=== PATIENT | female | born 1970 | race Caucasian/White ===

== ENCOUNTER 2018-04-23 20:56 | Outpatient (CLI) | payer BC, OTHER ==
[~2018-04-23 20:56] MED LIST: CYAN100021 PO; LVT.1T PO; PNT40TEC PO; VIT1TABL57; VIT1TABL93 PO; VITIMIN D
== END 2018-04-24 06:40 | disposition home or self-care (01) ==
LOC: SLEEP 20:56
PROVIDERS: ATTEND Internal Medicine Cardiovascular Disease
DX: G47.33 Obstructive sleep apnea (adult) (pediatric) (principal)
CPT/HCPCS: 95810

== ENCOUNTER 2018-06-03 21:03 | Outpatient (CLI) | payer BC | END 2018-06-04 06:57 | disposition home or self-care (01) | LOC: SLEEP 21:03 | PROVIDERS: ATTEND Nurse Practitioner Family | DX: G47.33 Obstructive sleep apnea (adult) (pediatric) (principal); R06.83 Snoring; I10 Essential (primary) hypertension | CPT/HCPCS: 95811 ==

== ENCOUNTER 2020-11-13 05:31 | Outpatient (CLI) | payer BC ==
[~2020-11-13] VITALS: Ht 167.7 cm; Wt 140.9 kg
[2020-11-13] MEDS ORDERED: CELE50CA PO (16:15)
[2020-11-13] MEDS ORDERED: PANT40TA2 PO (16:15)
[2020-11-13] MEDS ORDERED: LEVO150C4 PO (16:15)
[2020-11-13] MEDS ORDERED: DIPH25CA79 PO (16:15)
[2020-11-13] MEDS ORDERED: FERR-84 PO (16:15)
[2020-11-13] MEDS ORDERED: LORA10TA76 PO (16:15)
[2020-11-13] MEDS ORDERED: ROSU5TAB PO (16:15)
[2020-11-13] MEDS ORDERED: CHOL20003 PO (16:15)
[2020-11-13] MEDS ORDERED: METO-351 PO (16:15)
== END 2020-11-13 16:54 | disposition home or self-care (01) ==
LOC: PREOP 05:31
PROVIDERS: ATTEND Orthopaedic Surgery
DX: Z01.818 Encounter for other preprocedural examination (principal)

== ENCOUNTER 2020-11-20 09:00 | Day surgery (SDC) | payer BC ==
--- NOTE | 2020-11-14 07:39 | HISTORY AND PHYSICAL ---
DATE OF SERVICE: ADMISSION HISTORY AND PHYSICAL DATE OF ADMISSION: 11/20/2020. This will be for outpatient surgery on 11/20/2020 for right knee arthroscopy. HISTORY OF PRESENT ILLNESS: The patient is a 50-year-old female with right knee pain, catching, locking and swelling. She underwent an MRI, which revealed evidence of medial and lateral meniscus tears. Due to functional impairment and failure to improve with conservative measures, the patient elected to proceed with surgical intervention. REVIEW OF SYSTEMS: No chest pain, no shortness of breath, and no dysuria. PAST MEDICAL HISTORY: Hypothyroidism, colon polyps, obesity, polycystic ovarian syndrome, iron deficiency anemia, hernia and PVCs. PAST SURGICAL HISTORY: , cholecystectomy, herniorrhaphy, and bilateral carpal tunnel. FAMILY HISTORY: Significant for cardiovascular disease and diabetes. PRIMARY CARE PROVIDER: Dr. Rodríguez. MEDICATIONS: 1. Levothyroxine. 2. Iron. 3. Protonix. 4. Claritin. 5. Toprol. ALLERGIES: LEVAQUIN and SULFA. SOCIAL HISTORY: The patient drinks alcohol occasionally. Denies tobacco use. PHYSICAL EXAMINATION: GENERAL: The patient is well-developed, well-nourished, in no acute distress. HEENT: Normocephalic and atraumatic. Pupils are equal, round and reactive to light. Oropharynx is clear. NECK: Supple, with no lymphadenopathy. LUNGS: Clear to auscultation bilaterally. HEART: Regular rate and rhythm. ABDOMEN: Soft, nontender, and nondistended. EXTREMITIES: The right knee demonstrates a mild effusion. There is no erythema or warmth. Range of motion is 0/0/130. She is tender along the medial and lateral joint lines and has pain medially and laterally with Juancarlos's. 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 PLAN: Right knee arthroscopy, partial medial and lateral meniscectomies and chondroplasty. The risks, benefits, options, ramifications and recovery were discussed at length with the patient. She understands and wishes to proceed. Job ID: [id number] DocumentID: [id number] Dictated Date: 11/07/2020 11:09:30 Director Of Real Estate Date: 11/07/2020 11:37:40 Dictated By: LUKAS DICKENS MD
[~2020-11-20] VITALS: Ht 167.7 cm; Wt 140.9 kg
[2020-11-20] VITALS (10 sets, daily range): BP systolic 105–131; BP diastolic 53–83
[~2020-11-20 09:00] MED LIST changes: +CELE50CA PO; +CHOL20003 PO; +DIPH25CA79 PO; +FERR-84 PO; +LEVO150C4 PO; +LORA10TA76 PO; +METO-351 PO; +PANT40TA2 PO; +ROSU5TAB PO
--- NOTE | 2020-11-20 09:03 | Progress Note-Pre Operative ---
Pre-Operative Progress Note H&P Reviewed The H&P was reviewed, patient examined and no changes noted. Date Seen by Provider: Nov 20, 2020 Time Seen by Provider: 09:03 Date H&P Reviewed: Nov 20, 2020 Time H&P Reviewed: 07:11 Pre-Operative Diagnosis: right lateral meniscus tear and chondromalacia LUKAS DICKENS MD Nov 20, 2020 09:03
--- NOTE | 2020-11-20 09:04 | Progress Note-Post Operative ---
Post-Operative Progess Note Surgeon (s)/Lan Support Specialist (s) Surgeon LUKAS DICKENS MD Lan Support Specialist: Kenrick Head Pre-Operative Diagnosis right lateral meniscus tear and chondromalacia Post-Operative Diagnosis right lateral meniscus tear and chondromalacia of medial and lateral femoral condyles, patella and trochlea Procedure & Operative Findings Date of Procedure 11/20/20 Procedure Performed/Findings right knee arthroscopic partial lateral meniscectomy and chondroplasty of the medial and lateral femoral condyles, patella and trochlea Anesthesia Type GETA Estimated Blood Loss Estimated blood loss (mL): minimal Specimens/Packing Specimens Removed none Packing: none LUKAS DICKENS MD Nov 20, 2020 09:04
[2020-11-20] MEDS ORDERED: HYDROcodone/APAP 7.5 MG/325 MG (LORTAB, LORCET PLUS) TABLET PO PRN (09:15)
[2020-11-20] MEDS ORDERED: ceFAZolin INJECTION 1,000 MG in WATER (STERILE) FOR INJECTION 10 ML IV ONE (09:15)
[2020-11-20] MEDS ORDERED: LIDOCAINE PF 2% 5 ML (XYLOCAINE) VIAL ONE (09:28)
[2020-11-20] MEDS ORDERED: proPOfol 200 MG/20 ML (DIPRIVAN) VIAL IV ONE (09:28)
[2020-11-20] MEDS ORDERED: fentaNYL INJ 100 MCG/2 ML AMP ONE (09:28)
[2020-11-20] MEDS ORDERED: ONDANSETRON 4 MG/2 ML (SDV) Z0FRAN ONE (09:28)
[2020-11-20] MEDS ORDERED: PROPOFOL INJECTION 50 ML IV ONE ×2 (09:28→10:13)
[2020-11-20] MEDS ORDERED: MIDAZOLAM 2 MG/2 ML (VERSED) VIAL ONE (09:28)
[2020-11-20] MEDS ORDERED: FAMOTIDINE 20MG/2ML IV (PEPCID) IV ONE (09:30)
[2020-11-20] MEDS ORDERED: ONDANSETRON 4 MG/2 ML (SDV) Z0FRAN IV ONE (09:30)
[2020-11-20] MEDS ORDERED: morphine PF (DURAMORPH) 10 MG/10 ML AMP ONE (09:40)
[2020-11-20] MEDS ORDERED: BUPIVACAINE 0.25% 30 ML (SENSORCAINE) VIAL ONE (09:40)
[2020-11-20] MEDS ORDERED: ceFAZolin INJECTION 1,000 MG ONE (09:48)
[2020-11-20] MEDS: LACTATED RINGERS 1,000 ML IV PRN ×2 (09:49→10:52)
[2020-11-20] MEDS ORDERED: WATER (STERILE) FOR INJECTION 10 ML ONE (09:49)
[2020-11-20] MEDS ORDERED: morphine INJ 10 MG/ML 1ML (SYR OR VIAL) IVP ONE (11:00)
[2020-11-20] MEDS ORDERED: HYDROmorphone 2 MG/ML VIAL (DILAUDID) IV ONE (11:00)
[2020-11-20] MEDS ORDERED: morphine INJ 10 MG/ML 1ML (SYR OR VIAL) ONE (11:01)
[2020-11-20] MEDS: ONDANSETRON 4 MG/2 ML (SDV) Z0FRAN IVP PRN ×3 (11:03→11:58)
[2020-11-20] MEDS ORDERED: HYDROcodone/APAP 7.5 MG/325 MG (LORTAB, LORCET PLUS) TABLET PO ONE (12:15)
[2020-11-20] MEDS ORDERED: HYDR-34 PO (12:47)
[2020-11-20] MEDS ORDERED: CYCL5TAB PO (12:47)
--- NOTE | 2020-11-20 13:01 | Physical Therapy Ortho Eval ---
PT Orthopedic Evaluation Type of Surgery Knee Scope right side Prior Level of Function Current Living Status: Spouse Locomotion (Upon Admit): Independent Subjective Subjective Patient in bed pre tx, agrees to PT, has 5/10 pain, still drowsy. Patient has a split level home and any way she goes in she has about 12-15 steps to go up or down. Those steps do have handrails. Patient wants to use crutches but a rolling walker will be safer at this time, she will be educated on how to use crutches and how to use them on her stairs at the appropriate time (verbal directions, with demonstration). Motor Control Motor Control: Motor Control WNL Transfer SCALE: Activities may be completed with or without assistive devices. 0-Ikvltuufar-qekbyer completes the activity by him/herself with no assistance from a helper. 5-Set-up or Clean-up Assistance-helper sets up or cleans up; patient completes activity. [place] assists only prior to or following the activity. 4-Supervision or Touching Assistance-helper provides verbal cues and/or touching/steadying and/or contact guard assistance as patient completes activity. Assistance may be provided throughout the activity or intermittently. 3-Partial/Moderate Assistance-helper does LESS THAN HALF the effort. [place] lifts, holds or supports trunk or limbs, but provides less than half the effort. 2-Substantial/Maximal Assistance-helper does MORE THAN HALF the effort. [place] lifts or holds trunk or limbs and provides more than half the effort. 8-Zbwzsytvr-jntatr does ALL the effort. Patient does none of the effort to complete the activity. Or, the assistance of 2 or more helpers is required for the patient to complete the activity. If activity was not attempted, code reason: 7-Patient Refused. 9-Not Applicable-not attempted and the patient did not perform the activity before the current illness, exacerbation or injury. 10-Not Attempted due to Environmental Limitations-(lack of equipment, weather restraints, etc.). 88-Not Attempted due to Medical Conditions or Safety Concerns. Transfers (B, C, W/C) (QC): 4 Gait Summary/Comments Patient ambulated 60' with a rolling walker with CGA and went up and down 1 step using a rolling walker with CGA and cues for steps and positioning. Patient had some difficulty going up and down the step but didn't need any actual assist from therapist. Treatment Rendered Treatment: Therapeutic Exercises, Gait Train, Step Train Exercise Instruction: Quad Sets, Heel Slides, Ankle Pumps Assessment/Goals Goal Time Frame: 1 Visit Understands HEP: Yes Safe Ambulation: Yes Plan Treatment Plan: Discharge PT/Family Agrees to Plan: Yes Time Time In: 1228 Time Out: 1247 Total Billed Treatment Time: 19 Billed Treatment Time 1 visit EVL 19' MARVIN MACE PT Nov 20, 2020 13:00
--- NOTE | 2020-11-20 17:13 | OPERATIVE REPORT ---
DATE OF SERVICE: 11/20/2020 PREOPERATIVE DIAGNOSES: 1. Right knee lateral meniscus tear. 2. Right knee chondromalacia of the medial femoral condyle. 3. Right knee chondromalacia of the patella. POSTOPERATIVE DIAGNOSES: 1. Right knee lateral meniscus tear. 2. Right knee chondromalacia of the medial femoral condyle. 3. Right knee chondromalacia of the patella. 4. Right knee chondromalacia of the lateral femoral condyle. 4. Right knee chondromalacia of the trochlea. PROCEDURES PERFORMED: 1. Right knee arthroscopic partial lateral meniscectomy. 2. Right knee arthroscopic chondroplasty of the medial femoral condyle. 3. Right knee arthroscopic chondroplasty of the patella. 4. Right knee arthroscopic chondroplasty of the lateral femoral condyle. 5. Right knee arthroscopic chondroplasty of the trochlea. SURGEON: Sp Potter MD CREDIT OR LOANS OFFICER: Kenrick Head, who assisted throughout the procedure and closed the incisions. ANESTHESIA: General endotracheal by Ander Valdez CRNA. TOURNIQUET TIME: Not applicable. ESTIMATED BLOOD LOSS: Minimal. DRAINS: None. COMPLICATIONS: None. POSTOPERATIVE PLAN: Routine arthroscopy protocol. The patient was transferred to the recovery room awake and in stable condition. STATEMENT OF MEDICAL NECESSITY: The patient is a 50-year-old female with complaints of right knee pain, catching, locking and swelling. She was tender along the lateral joint line. She has pain laterally with Juancarlos's. In addition, she underwent an MRI that showed a lateral meniscus tear as well as chondral changes throughout her medial and patellofemoral compartments. Due to functional impairment and failure to improve with conservative measures, the patient elected to proceed with surgical intervention. Examination under anesthesia revealed range of motion of 0/0/125 with negative Jessica, negative anterior and posterior drawer. No varus or valgus laxity and a negative pivot shift. ARTHROSCOPIC FINDINGS: The patella demonstrated grade II chondral flaps inferiorly in a 10 x 10 area. Trochlea demonstrated grade III to IV chondral loss centrally in a 10 x 10 area. The medial and lateral gutters were clear. The ACL and PCL were intact. The lateral compartment demonstrated a tear of the posterior horn of the lateral meniscus involving approximately 80% of the posterior horn and body. In addition, there were grade III chondral flaps of the central portion of the femoral condyle in a 10 x 10 area. The medial compartment demonstrated grade III chondral flaps of the central portion of the femoral condyle in an 8 x 8 area. PROCEDURE IN DETAIL: After risks and benefits of the procedure were discussed and questions were answered, an informed consent was signed and placed on chart, the operative sites were confirmed in the preoperative holding area initialed by the surgeon. The patient was transferred to the operating room. After adequate levels of general endotracheal anesthetic were obtained, a timeout was called, confirming the operative site. Examination under anesthesia was performed with the above findings noted. The right lower extremity was prepped and draped in the usual sterile fashion. Knee joint was injected with 60 mL of fluid and standard inferolateral portal was placed with arthroscope. Under direct visualization, inferior medial portal was created. Diagnostic arthroscopy was performed with the above findings noted. The unstable chondral flaps on the patella and trochlea were debrided with a shaver back to a stable edge. Scope was then redirected into the medial compartment and the unstable chondral flaps of the medial femoral condyle were debrided with shaver back to a stable edge. Scope was redirected into the lateral compartment and unstable chondral flaps in lateral femoral condyle were debrided with a shaver back to a stable edge and the lateral meniscus tear was debrided with a biter and a shaver removing approximately 80% of the posterior horn and body. This was carefully probed with no further tearing or instability noted. The knee was copiously irrigated. The portal sites were closed with 4-0 nylon in a simple interrupted fashion. The knee was injected with Duramorph. The portal sites were infiltrated with plain Marcaine. A soft dressing was applied and the patient was transferred to the recovery room awake and in stable condition. Job ID: [id number] DocumentID: [id number] Dictated Date: 11/20/2020 10:51:40 Belting Inspector Date: 11/20/2020 17:12:46 Dictated By: SP POTTER MD
--- NOTE | 2020-11-21 07:56 | Anesthesia-General Post-Op ---
General Patient Condition Mental Status/LOC: Same as Preop Cardiovascular: Satisfactory Nausea/Vomiting: Absent Respiratory: Satisfactory Pain: Controlled Complications: Absent Post Op Complications Complications None Follow Up Care/Instructions Patient Instructions None needed. Anesthesia/Patient Condition Patient Condition Patient was seen after the procedure and she was doing well, no complaints, stable vital signs, no apparent adverse anesthesia problems. CHIQUI GARCIA 10, 2021 07:56
== END 2020-11-20 13:25 | disposition home or self-care (01) ==
LOC: SDC 09:00
PROVIDERS: ATTEND Orthopaedic Surgery
DX: S83.281A Other tear of lateral meniscus, current injury, right knee, initial encounter (principal); M94.261 Chondromalacia, right knee; I10 Essential (primary) hypertension; G47.33 Obstructive sleep apnea (adult) (pediatric); E03.9 Hypothyroidism, unspecified; E66.01 Morbid (severe) obesity due to excess calories; E78.5 Hyperlipidemia, unspecified; R07.9 Chest pain, unspecified; K21.9 Gastro-esophageal reflux disease without esophagitis; F41.9 Anxiety disorder, unspecified; Z86.16 Personal history of COVID-19; Z68.43 Body mass index [BMI] 50.0-59.9, adult; Z99.89 Dependence on other enabling machines and devices; Z79.899 Other long term (current) drug therapy; Z79.890 Hormone replacement therapy; Z83.3 Family history of diabetes mellitus
CPT/HCPCS: 87081

== ENCOUNTER → 2021-05-07 | Outpatient (CLI) | payer BC ==
[~2021-05-07] MED LIST changes: +CATHETER FLUSH 10 ML SYR IV PRN; +CYCL5TAB PO; +HYDR-34 PO; +REGADENOSON 0.4 MG/5 ML SYR (LEXISCAN) IV ONE
[2021-05-07 09:43] VITALS: BP 129/92
--- NOTE | 2021-05-07 11:56 | Cardiology Stress Test Report ---
Stress Test Report Date of Procedure/Referring: Date of Procedure: May 07, 2021 PCP Deborah Souza MD Admitting Physician Emerita Rodríguez MD Indications: Palpitation Baseline Heart Rate: 83 Baseline Blood Pressure: Blood Pressure Systolic: 129 Blood Pressure Diastolic: 92 Baseline Vitals Vital Signs Date Time Temp Pulse Resp B/P (MAP) Pulse Ox O2 Delivery O2 Flow Rate FiO2 05/07/21 09:43 86 129/92 (104) Baseline EKG: Baseline EKG: NSR Summary After explaining the procedure to the patient, she signed a consent and then brought to the stress nuclear laboratory. Patient received 0.4 mg Lexiscan for stress test, ECG, heart rate and blood pressure were monitored continuously. Resting and stress dose of radio tracer were injected, imaging was acquired and reviewed in short axis, horizontal long axis and vertical long axis views. TID: 1.03 SSS: 18 SDS: 4 EF: 61 1. Patient tolerated Lexiscan well 2. Breast attenuation with reversible ischemia involving the whole anterior wall and anterolateral wall 3. Normal left ventricular size, EF 61% DEBORAH SOUZA MD May 07, 2021 11:56
== END ==
LOC: CARD 08:15
PROVIDERS: ATTEND Internal Medicine Cardiovascular Disease
DX: R00.2 Palpitations (principal)
CPT/HCPCS: 78452; 93017; A9502

== ENCOUNTER 2021-05-23 10:00 | Day surgery (SDC) | payer BC ==
[2021-05-23] VITALS (9 sets, daily range): BP systolic 99–153; BP diastolic 65–98
[~2021-05-23] VITALS: Ht 167 cm; Wt 141.0 kg
[2021-05-23 08:27] LABS: HEMATOCRIT 44 % (35-52); HEMOGLOBIN 14.7 g/dL (11.5-16.0); MEAN CORPUSCULAR HEMOGLOBIN 29 pg (25-34); MEAN CORPUSCULAR HGB CONC 33 g/dL (32-36); MEAN CORPUSCULAR VOLUME 85 fL (80-99); MEAN PLATELET VOLUME 11.9 fL (9.0-12.2); PLATELET COUNT 244 10^3/uL (130-400); WHITE BLOOD COUNT 9.5 10^3/uL (4.3-11.0)
[2021-05-23 08:39] LABS: INR 0.9 (0.8-1.4); PROTHROMBIN TIME PATIENT 12.4 SEC (12.2-14.7)
--- NOTE | 2021-05-23 08:40 | Diagnostic Imaging Report ---
EXAM: CHEST 1 VIEW, AP/PA ONLY INDICATION: Chest pain. Hypertension. Palpitations. COMPARISON: None FINDINGS: Normal heart size and central pulmonary vascularity. No focal pulmonary opacity. No pleural effusion or pneumothorax. No acute osseous findings. IMPRESSION: No acute cardiopulmonary findings. Dictated by: Dictated on workstation # [id number]
[2021-05-23 08:47] LABS: ALBUMIN 3.8 GM/DL (3.2-4.5); BILIRUBIN,TOTAL 0.4 MG/DL (0.1-1.0); CALCIUM 9.4 MG/DL (8.5-10.1); CREATININE SERUM 0.76 MG/DL (0.60-1.30); POTASSIUM 4.2 MMOL/L (3.6-5.0); TOTAL PROTEIN 7.4 GM/DL (6.4-8.2)
--- NOTE | 2021-05-23 09:43 | Conscious Sedation/ASA ---
Conscious Sedation Pre-Proced Time 09:43 ASA Score 3 For ASA 3 and 4: Consider anesthesia and medical clearance. Also, for patients with a history of failed moderate sedation consider anesthesia. Airway Lungs Heart ASA score ASA 1: a normal healthy patient ASA 2: a patient with a mild systemic disease (mid diabetes, controlled hypertension, obesity x ASA 3: a patient with a severe systemic disease that limits activity (angina, COPD, prior Myocardial infarction) ASA 4: a patient with an incapacitating disease that is a constant threat to life (CHF, renal failure) ASA 5: a moribund patient not expected to survive 24 hrs. (ruptured aneurysm) ASA 6: a declared brain- patient whose organs are being harvested. For emergent operations, add the letter E after the classification Mallampati Classification Grade 3 Sedation Plan Analgesia, Amnesia, Plan communicated to team members, Discussed options with patient/fam, Discussed risks with patient/fam The patient is an appropriate candidate to undergo the planned procedure, sedation, and anesthesia. The patient immediately re-assessed prior to indication. DEBORAH HURTADO MD May 23, 2021 09:43
[~2021-05-23 10:00] MED LIST changes: -CATHETER FLUSH 10 ML SYR IV PRN; +HEParin (CATH LAB) 2,000 ML IV ONE; +LIDOCAINE 1% INJ 20 ML 20 ML VIAL ONE; +NS IV 1000 ML 1,000 ML IV SCH; +NS IV 1000 ML 1,000 ML ONE; -REGADENOSON 0.4 MG/5 ML SYR (LEXISCAN) IV ONE; +TRAM50TA3 PO
[2021-05-23] MEDS ORDERED: fentaNYL INJ 100 MCG/2 ML AMP ONE (10:22)
[2021-05-23] MEDS ORDERED: HEParin 1000 UNIT/ML (10ML VIAL) FOR BOLUS ONE (10:22)
[2021-05-23] MEDS ORDERED: VERAPAMIL 5 MG/2 ML (CALAN) VIAL IV ONE (10:22)
[2021-05-23] MEDS ORDERED: MIDAZOLAM 5 MG/5 ML (VERSED) VIAL ONE (10:22)
[2021-05-23] MEDS ORDERED: NITRO DRIP 25000 MCG/D5W 250 ML IV ONE (10:23)
--- NOTE | 2021-05-23 11:10 | Discharge Inst-Post CATH ---
Discharge Inst-CATH/EP Problems Reviewed?: Yes Post Cardiac Cath/EP D/C Inst Follow Up/Plan Appointment with Dr. Souza's office in 4 weeks <b>CARDIAC CATH/EP PROCEDURE DISCHARGE INSTRUCTIONS</b> ACTIVITY * Go Home directly and rest. * Limit activity of the leg (or wrist if it was used) for 7 days including aerobics, swimming, jogging, bicycling, etc. * Restrict stair-climbing for 7 days if possible, if not, climb up with your non-cath leg, then bring together on the same step. * Avoid lifting, pushing, pulling or excessive movement of the affected extremity for 7 days. * Customary sexual activity may be resumed after 2 days-use caution not to use a position that strains or causes pain to the affected extremity. * No driving for 24 hours. * NO SMOKING. * Avoid straining for bowel movements for 7 days. * Gentle walking on level ground is allowed. * Returning to work will depend on the type of procedure and the results. Your doctor will discuss this with you. CALL YOUR DOCTOR FOR ANY OF THE FOLLOWING: *If bleeding from the puncture site occurs- Apply gentle pressure to site with clean cloth and call your doctor or EMS. * If a knot or lump forms under the skin, increases in size, or causes pain. * If bruising appears to be worsening or moving further down your leg instead of disappearing. * Temperature above 101 F. CARE OF YOUR GROIN INCISION; * Bruising or purple discoloration of the skin near the puncture site is common. * You may shower only, no bathtub bathing for 5 days. Be careful to avoid slipping as your leg may feel stiff. * If a closure device was used on your femoral artery, please see the attached guide regarding care of the device and your leg. * Leave dressing on FOR 24 hours. CARE OF YOUR WRIST INCISION; * Bruising or purple discoloration of the skin near the puncture site is common. * You may shower. * DO NOT submerge wrist. * Leave dressing on FOR 24 hours. DEBORAH SOUZA MD May 23, 2021 11:10
--- NOTE | 2021-05-23 11:13 | Cardiac Cath Report ---
Cardiac Cath Report Physician (s)/Monogram And Letter Paster (s) Physician DEBORAH HURTADO MD Pre-Procedure Diagnosis Pre-Procedure Diagnosis: Coronary artery disease Post-Procedure Note Procedure Start Date: May 23, 2021 Name of Procedure: Left heart catheterization Findings/Procedure Note PROCEDURE NOTE: 51-year-old lady with history of hypertension, hyperlipidemia, has been having chest pain, had an abnormal stress test, scheduled for cardiac catheterization possible PTCA. After explaining the procedure to the patient, all pros and cons were explained, all questions were answered. The patient signed the consent and then she was placed on the cardiac catheterization laboratory. Groin was prepped SL fashion local anesthesia was used. Sheath placed in the right radial artery, Parish catheter was advanced to the left ventricular cavity, pressure was measured, pullback LV to aorta was done, engaged the right and left coronary system, angiogram was done. At the end of the procedure the sheath was removed. Vascular band deployed FINDINGS: Hemodynamics LV 113/12, end-diastolic pressure of 12 Aorta 112/80 mean of 91 ANATOMY: Left Main is free of obstructive disease Left Anterior Descending is tortuous artery with mild disease nonobstructive disease Left Circumflex has mild disease nonobstructive disease Right Coronary Artery has mild disease nonobstructive disease LV Gram was not done, pressure was measured CONCLUSION: 1. Slightly tortuous LAD system with mild coronary artery disease nonobstructive disease 2. Normal left ventricular end-diastolic pressure DISCUSSION AND RECOMMENDATION: Medical therapy is recommended no intervention is warranted Anesthesia Type: Conscious Sedation Estimated blood loss (mL): 10 ml Contrast Amount: 44 ml Total Radiation Dose: 542 mGy Post-Procedure Diagnosis Post-operative diagnosis: Chest pain Coronary artery disease Hypertension Hyperlipidemia DEBORAH HURTADO MD May 23, 2021 11:13
[2021-05-23] MEDS ORDERED: NS IV 1000 ML 1,000 ML IV SCH (11:15)
== END 2021-05-23 13:45 | disposition home or self-care (01) ==
LOC: CATH 10:00 → SDC 11:16 → CATH 13:45
PROVIDERS: ATTEND Internal Medicine Cardiovascular Disease
DX: I25.10 Atherosclerotic heart disease of native coronary artery without angina pectoris (principal); I10 Essential (primary) hypertension; E78.5 Hyperlipidemia, unspecified; E03.9 Hypothyroidism, unspecified; E78.2 Mixed hyperlipidemia; G47.33 Obstructive sleep apnea (adult) (pediatric); R00.2 Palpitations; E66.9 Obesity, unspecified; F41.9 Anxiety disorder, unspecified; K21.9 Gastro-esophageal reflux disease without esophagitis; Z79.899 Other long term (current) drug therapy; Z68.43 Body mass index [BMI] 50.0-59.9, adult; Z99.89 Dependence on other enabling machines and devices; Z79.890 Hormone replacement therapy; Z82.49 Family history of ischemic heart disease and other diseases of the circulatory system; Z11.2 Encounter for screening for other bacterial diseases; Z88.1 Allergy status to other antibiotic agents; Z88.2 Allergy status to sulfonamides
CPT/HCPCS: 36430; 71045; 80053; 80061; 84703; 85027; 85610; 85730; 87081; 93458; C1894; 36415

== ENCOUNTER → 2022-03-31 | Outpatient (CLI) | payer BC ==
[~2022-03-31] MED LIST changes: -HEParin (CATH LAB) 2,000 ML IV ONE; -LIDOCAINE 1% INJ 20 ML 20 ML VIAL ONE; -NS IV 1000 ML 1,000 ML IV SCH; -NS IV 1000 ML 1,000 ML ONE
[2022-03-31 10:54] LABS: BASOPHILS % (AUTO) 1 % (0-10); EOSINOPHILS # (AUTO) 0.3 10^3/uL (0.0-0.3); EOSINOPHILS % (AUTO) 5 % (0-10); HEMATOCRIT 42 % (35-52); LYMPHOCYTES # (AUTO) 1.7 10^3/uL (1.0-4.0); LYMPHOCYTES % (AUTO) 28 % (12-44); MEAN CORPUSCULAR HEMOGLOBIN 28 pg (25-34); MEAN CORPUSCULAR HGB CONC 34 g/dL (32-36); MEAN CORPUSCULAR VOLUME 84 fL (80-99); MEAN PLATELET VOLUME 11.5 fL (9.0-12.2); MONOCYTES # (AUTO) 0.4 10^3/uL (0.0-1.0); MONOCYTES % (AUTO) 6 % (0-12); NEUTROPHILS # (AUTO) 3.6 10^3/uL (1.8-7.8); NEUTROPHILS % (AUTO) 60 % (42-75); PLATELET COUNT 190 10^3/uL (130-400)
[2022-03-31 11:14] LABS: ALBUMIN 3.7 GM/DL (3.2-4.5); BILIRUBIN,TOTAL 0.6 MG/DL (0.1-1.0); CALCIUM 9.1 MG/DL (8.5-10.1); CREATININE SERUM 0.74 MG/DL (0.60-1.30); POTASSIUM 3.8 MMOL/L (3.6-5.0); TOTAL PROTEIN 6.7 GM/DL (6.4-8.2)
--- NOTE | 2022-03-31 11:34 | Diagnostic Imaging Report ---
CLINICAL INDICATION: Patient with lower abdominal pain. Evaluate for any abnormality. Patient has had previous surgeries to the abdomen and which caused surgical mesh plate after. Gallbladder is surgically absent. No history of cancer. EXAM: CT exam of the abdomen and pelvis is performed without IV or oral contrast using stone protocol. Coronal and sagittal reformatted images were created. Auto Exposure Controls were utilized during the CT exam to meet ALARA standards for radiation dose reduction. COMPARISON: None. FINDINGS: Visualized lung bases: There are mild patchy areas of infiltrate involving the right lower lobe. Liver: Unremarkable as visualized. Gallbladder: Unremarkable. Pancreas: Unremarkable as visualized. Spleen: Unremarkable as visualized. Adrenal glands: Unremarkable. Kidneys/ ureters: Unremarkable as visualized. Aorta: Unremarkable as visualized. Intraabdominal/ retroperitoneal contents: Unremarkable. Intestines: There is mild bowel wall thickening involving the sigmoid colon with adjacent fat stranding, concerning for diverticulitis. There are other diverticula seen involving the sigmoid colon, descending colon, and transverse colon. Appendix: Unremarkable. Bladder: Unremarkable as visualized. Pelvic organs: Unremarkable as visualized. Extra abdominal/ pelvis regions: Unremarkable. Abdominal wall: There is an abdominal wall defect seen to the right side of the umbilicus which is fat containing representing a herniation. This area measures roughly 2.5 cm in transverse dimension and 2.1 cm in craniocaudal dimension. There is an amorphous area of soft tissue thickening involving the low anterior midline abdominal region which is in the area of surgical incision. This may be related to scarring. The density is roughly 57 Hounsfield units. Bones: There are lower lumbar spine facets. There are degenerative spurs involving the visualized lower thoracic spine and lumbar spine. IMPRESSION: 1: There is sigmoid diverticulitis. There is no evidence of abscess or intra-abdominal free air. 2: There is a small fat-containing abdominal wall hernia which is adjacent to the right side of the umbilicus. 3: Nonspecific thickening in the low midline abdominal region which is slightly increased in density compared to muscle. This may represent an area of scarring or complex fluid collection. There is no adjacent fat stranding and abscess is suspected to be less likely. 4: The remainder of this exam shows no other significant abnormality. Dictated by: Dictated on workstation # [id number]
== END ==
LOC: RAD 10:22
PROVIDERS: ATTEND Nurse Practitioner
DX: K57.32 Diverticulitis of large intestine without perforation or abscess without bleeding (principal); K43.9 Ventral hernia without obstruction or gangrene
CPT/HCPCS: 36415; 74176; 80053; 82150; 83690; 85025

== ENCOUNTER → 2022-11-02 | Outpatient (CLI) | payer BC ==
--- NOTE | 2022-11-02 14:43 | Diagnostic Imaging Report ---
INDICATION: Lump and pain in the upper outer left breast. Correlation is made with prior mammogram 01/08/2022 and 01/09/2021. 2-D and 3-D bilateral diagnostic mammography was performed with CAD. CAD is utilized. The current study was also evaluated with a Computer Aided Detection (CAD) system. BB marker was placed at the area of pain in the upper outer left breast near the left axilla. Patient denies having a palpable lump on today's exam. Scattered fibroglandular densities are noted bilaterally. There are scattered benign calcifications. No mass or malignant-appearing microcalcifications are seen. At the area of pain in the left axilla, no underlying abnormality is identified. IMPRESSION: BI-RADS Category 0 No mammographic features suspicious for malignancy are identified. Even so, directed sonographic interrogation of the area of pain in the left axilla is recommended and will be performed today. ACR BI-RADS Category 0: Incomplete. (Needs additional imaging evaluation). Result letter will be mailed to the patient. Note: At least 10% of breast cancer is not imaged by mammography. Dictated by: Dictated on workstation # [id number]
--- NOTE | 2022-11-02 15:23 | Diagnostic Imaging Report ---
INDICATION: Tenderness to the left breast and in the upper outer aspect. Sonography interrogation area of pain and tenderness upper outer left breast was performed. No sonographic abnormality is identified. No solid or cystic masses detected. IMPRESSION: No sonographic abnormality is detected. ACR BI-RADS Category 1: Negative. Result letter will be mailed to the patient. Note: At least 10% of breast cancer is not imaged by mammography. BI-RADS Category 1 Dictated by: Dictated on workstation # [id number]
== END ==
LOC: RAD 13:08
PROVIDERS: ATTEND Nurse Practitioner Family
DX: N63.21 Unspecified lump in the left breast, upper outer quadrant (principal)
CPT/HCPCS: 76642; 77066; G0279; 77062

== ENCOUNTER → 2022-11-17 | Outpatient (CLI) | payer BC ==
[~2022-11-17] MED LIST changes: +CATHETER FLUSH 10 ML SYR IV PRN; +HOLD METFORMIN - RECEIVED CONTRAST 20 ML VIAL IV SCH; +IOHEXOL 350 MG/ML 100 ML (OMNIPAQUE 350) VIAL IV ONE; +NS 100 ML (IVPB) BAG IV ONE
--- NOTE | 2022-11-17 16:56 | Diagnostic Imaging Report ---
PROCEDURE: CT abdomen and pelvis with contrast. TECHNIQUE: Multiple contiguous axial images were obtained through the abdomen and pelvis after administration of intravenous contrast. Auto Exposure Controls were utilized during the CT exam to meet ALARA standards for radiation dose reduction. All CT scans use one or more of the following dose optimizing techniques: automated exposure control, MA and/or KvP adjustment based on patient size and exam type or iterative reconstruction. INDICATION: Ulcerative colitis. Comparison is made with prior CT from 03/31/2022. Imaging through lung bases demonstrates the lungs to be free of acute infiltrates. The small nodules in bilateral lower lobes are stable when compared with prior exam. The liver demonstrates generalized low attenuation consistent with hepatic steatosis. No liver mass is identified. Gallbladder is surgically absent. There is no biliary duct dilatation. The pancreas and spleen are unremarkable. No adrenal mass is identified. Kidneys are unremarkable. No definite calculi or hydronephrosis is detected. Aorta is nonaneurysmal. There is a fat-containing umbilical hernia. There is also small right para midline fat-containing ventral hernia at the level of the umbilicus. This is similar to prior exam. More inferiorly, there is a right paramidline fat-containing ventral hernia. Bowel loops are normal caliber. There is no obstruction. Diverticulosis of the descending and sigmoid colon is noted. No significant inflammatory changes are seen to suggest acute diverticulitis. The area of abnormal soft tissue density in the midline anterior abdominal wall appears stable and may represent scarring. Bladder is decompressed. Uterus is unremarkable. IMPRESSION: 1. Uncomplicated diverticulosis. 2. Hepatic steatosis. 3. Umbilical and ventral hernias, as described. 4. No acute feature in the abdomen or pelvis is identified. Dictated by: Dictated on workstation # [id number]
== END ==
LOC: RAD 15:12
PROVIDERS: ATTEND Family Medicine
DX: K42.9 Umbilical hernia without obstruction or gangrene (principal); K51.90 Ulcerative colitis, unspecified, without complications; K43.9 Ventral hernia without obstruction or gangrene; R91.8 Other nonspecific abnormal finding of lung field; K57.32 Diverticulitis of large intestine without perforation or abscess without bleeding; Z90.49 Acquired absence of other specified parts of digestive tract
CPT/HCPCS: 74177